=== PATIENT | male | born 1980 | race African-American/Black ===

== ENCOUNTER 2016-08-10 16:31 | Emergency (ER) | payer MEDICAID, OTHER ==
[~2016-08-10] VITALS: Ht 165.1 cm; Wt 196.7 kg
[~2016-08-10 16:31] MED LIST: CETI10CA PO; CHOL100043 PO; ESCI10TA52 PO; ESCI20TA38 PO; FURO40TA4 PO; HYDR-3797 PO; KETO120S3 TOPICAL; OMEP20CA11 PO; SPIR25TA3 PO
[2016-08-10 16:34] VITALS: BP 156/104; PULSE 107; RESP 16; O2SAT 94
--- NOTE | 2016-08-10 16:53 | ED.REPORT ---
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 The patient states, "I am under a lot of pressure in my life and the only way I see I can deal with this is to kill myself." He states, "I am living off of social security. I have student loans and these are being forgiven and now I am being taxed and I have no way to pay it back." He reports, "I would jump in front of train. If I am hit by a train no one can put me back together again." He has attempted to kill himself in the past. He tried to overdose in the 8th grade and the next time was in 2013 when he jumped in front of an [employer] train. The patient lives alone in [place]. He reports that his director of casework department has dropped all of his care. He has talked to his director of casework department about these symptoms but states they will not help him. He is currently taking Lexapro which helps with some of these symptoms. He has been in therapy in the past which has helped him. He feels that he is being socially isolated and left alone with his thoughts. He states, "in [place] they don't like black people." He does not use drugs or alcohol. Nursing Notes Stated Complaint: MENTAL HEALTH Chief Complaint: Psychiatric Complaint Nursing Notes Reviewed: Yes Allergies: Coded Allergies: No Known Allergies (Verified Allergy, Unknown, 08/10/16) Scheduled Cetirizine HCl (Zyrtec) 10 Mg Capsule 10 MG PO BID Cholecalciferol (Vitamin D3) (Vitamin D) 1,000 Unit Tablet 1 TAB PO DAILY Escitalopram Oxalate (Escitalopram Oxalate) 10 Mg Tablet 30 MG PO DAILY Furosemide (Furosemide) 40 Mg Tablet 40 MG PO DAILY Ketoconazole (Ketoconazole) 60 Applic/120 Ml Shampoo 1 APPLIC TOPICAL DAILY Omeprazole (Omeprazole) 20 Mg Capsule.dr 20 MG PO DAILY Spironolactone (Spironolactone) 25 Mg Tablet 100 MG PO DAILY Scheduled PRN Hydroxyzine Pamoate (HydrOXYzine Pamoate) 25 Mg Capsule 50 MG PO Q4H PRN PRN anxiety/agitation/insomnia General Time Seen by MD: 16:52 Chief Complaint Suicidal ideation Hx Obtained From: Patient Arrived By: Walk-in Onset Occurred: More than a week ago... Symptom Duration: Since onset Progression Since Onset: Constant, Gradually worsening Severity: Current: No pain currently Severity: Maximum: No pain Recent Healthcare: No recent hospitalization, Recent doctor visit Similar Sx Previous: Yes Risk-Psychiatric Illness Suicide Risk Stratification Suicide Risk Factors - Adult: : Previous attempt RF Statements: Risk factors reviewed Past Medical History Past Medical History Notes: Most recent hospitilization here was January 2015 Past Medical History Sleep Apnea not on CPAP yet Depression OCD Psychosis Lower extremity edema Possible schitzo affective vs depression with psycho features Past Surgical History None Family History Noncontributory Smoking History Never Smoker Social History Lives in [place] Alcohol Use: Denies alcohol use Drug Use: Denies drug use Ambulatory Status Independent Review of Systems Psychiatric: Reports: Change mental status, Stress, Suicidal ideation Complete sys rev & neg: except as marked. Musculoskeletal: Reports: Extremity swelling (chronic) Physical Exam Initial Vital Signs Initial VS: Reviewed Head / Eyes: Atraumatic, Normocephalic, PERRL ENT: Mucous membranes moist, Conjunctiva normal, No scleral icterus Neck: Supple, Non-tender, Full range of motion Respiratory: Breath sounds normal, Clear to auscultation, No respiratory distress Abdomen / GI: Soft, Non-tender, No guarding, No rebound, No distention Lymphatic: No lymphadenopathy Extremities: Vascular intact, Neuro intact Skin: Warm, Dry, No cyanosis General/Constitutional: Awake, Alert, Cooperative Neurologic: Oriented X3, Speech NL, No motor deficits, No sensory deficits, Cerebellar NL, Memory NL Abnormal Mood/Affect: Positive: Pressured speech Abnormal Thinking / Perception: Positive: Suicidal, with plan Cardiovascular: Heart rate NL, Regular rhythm, Heart sounds NL, No murmurs, No rubs, Peripheral circulation NL, Pulses = bilaterally Lower Ext Edema: Positive: Bilateral 1+ Interpretation & Diagnostics Interpretation & Diagnostics: Urine drug screen: negative Lab Results Interpretation Test 08/10/16 17:00 08/10/16 17:25 Hold Urine Received (Received) White Blood Count 7.5th/mm3 (3.8-10.1) Red Blood Count 4.32mil/mm3 (4.40-5.80) Hemoglobin 12.6g/dL (13.8-17.2) Hematocrit 37.8% (41.0-50.0) Mean Corpuscular Volume 87.5fL (81-100) Mean Corpuscular Hemoglobin 29.2pg (27.0-35.0) Mean Corpuscular Hemoglobin Concent 33.3% (32.0-37.0) Red Cell Distribution Width 14.6% (12.3-15.4) Platelet Count 356bil/L (150-400) Neutrophils (%) (Auto) 68.1% (40-74) Lymphocytes (%) (Auto) 24.1% (14-46) Monocytes (%) (Auto) 5.2% (4-12) Eosinophils (%) (Auto) 2.0% (0-5) Basophils (%) (Auto) 0.3% (0-3) Sodium Level 139mEq/L (134-144) Potassium Level 4.2mEq/L (3.5-5.2) Chloride Level 100mEq/L (97-108) Carbon Dioxide Level 27mmol/L (18-29) Blood Urea Nitrogen 23mg/dL (6-20) Creatinine 1.05mg/dL (0.76-1.27) Estimat Glomerular Filtration Rate 86mL/min (>59) Glucose Level 128mg/dL (60-99) Calcium Level 9.0mg/dL (8.5-10.1) Total Bilirubin 0.2mg/dL (0.0-1.2) Aspartate Amino Transf (AST/SGOT) 27U/L (0-50) Alanine Aminotransferase (ALT/SGPT) 34U/L (0-44) Alkaline Phosphatase 63U/L (25-150) Total Protein 7.3g/dL (6.4-8.4) Albumin 3.8g/dL (3.4-5.0) Thyroid Stimulating Hormone (TSH) 1.320uIU/mL (0.450-4.500) Hold Elias Top Tube Received (Received) Alcohol, Quantitative < 10mg/dL (0-10) Re-Eval/Medical Decision Med Decision/Clinical Course Please see social work notes for further history Source of Hx: Old records Re-Evaluation/Progress : Time of Eval: 19:44 Re-Evaluation/Progress Note: Rechecked the patient. Discussed results, social work consult, and plan for discharge. The patient is becoming agitated and states that his previous records are lies. Discussed importance of following up with his regular doctors and the resources that were given to him by the manager social services. Consultation : Consulted With: general distillery worker Call Returned at: 19:33 Note: The ED manager social services feels that the patient would not benefit from hospitalization. He provided the patient with housing options in the area. Counseled Regarding: Diagnosis, Lab results, Need for follow-up, When/why to return to ED Discharge & Departure Impression: Primary Impression: Acute situational disturbance )( Condition at Discharge: No danger to self, No danger to others, No suicidal ideation, No homicidal ideation Disposition: Home Discharge Condition All VS Reviewed: Yes Condition: Stable Additional Instructions: Thank you for entrusting us with your care today. At this time we do not think you would benefit from hospitalization. Use the resources that were given to you by the manager social services. Continue to take your normal medication as prescribed. Please return to the emergency department if you are having new or worsening symptoms. Referrals: OTHER,PHYSICIAN (PCP) (Family) Scribe Attestation Portions of this note were transcribed by Sirena Young. Dr. Alexandria Robertson personally performed the history, physical exam and medical decision-making; I reviewed and confirmed the accuracy of the information in the transcribed note. Signed by: Jeffrey Franco, 08/10/2016 at 1999. Manolo Ibrahim DO Aug 10, 2016 16:53 Sirena Young Aug 10, 2016 17:04 Scribe Attestation Portions of this note were transcribed by Sirena Young. Dr. Alexandria Robertson personally performed the history, physical exam and medical decision-making; I reviewed and confirmed the accuracy of the information in the transcribed note. Signed by: Jeffrey Franco, 08/10/2016 at 1999. Manolo Ibrahim DO Aug 10, 2016 16:53 Sirena Young Aug 10, 2016 17:04
[2016-08-10 17:35] LABS: BASOPHILS % (AUTO) 0.3 % (0-3); MONOCYTES % (AUTO) 5.2 % (4-12); Mean Corpuscular Hemoglobin 29.2 pg (27.0-35.0); Mean Corpuscular Volume 87.5 fL (81-100); NEUTROPHILS % (AUTO) 68.1 % (40-74); Platelet Count 356 bil/L (150-400)
== END 2016-08-10 20:18 | disposition home or self-care (01) ==
LOC: SED 16:31
DX: F43.0 Acute stress reaction (principal)
CPT/HCPCS: 36415; 80053; 84443; 85025; 99284; G0480